=== PATIENT | male | born 1975 | race Caucasian/White ===

== ENCOUNTER 2018-02-25 08:28 | Emergency (ER) | payer BC ==
--- NOTE | 2018-02-25 08:36 | ER Report ---
History and Physical Time Seen By MD: 08:36 HPI/ROS CHIEF COMPLAINT: Blood in stool HISTORY OF PRESENT ILLNESS: Patient is a 42-year-old male who presents to emergency department with complaint of blood in his stools. 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 He states he's considered cancer free. Surgery occurred in [place]. Patient is currently considering moving back to [place] his parents live near [facility]. Patient states that he's been doing some moving lately and states approximately one week ago he had 2 episodes of hematuria which resolved spontaneously. He states that today he had grossly bloody stools with watery diarrhea. Denies any mucus. He also states that over the past few weeks to months his stool caliber has decreased in size. He denies any fevers or chills. Denies nausea vomiting. Denies any recent antibiotic use. REVIEW OF SYSTEMS: Constitutional: No fever, no chills. Eyes: No discharge. ENT: No sore throat. Cardiovascular: No chest pain, no palpitations. Respiratory: No cough, no shortness of breath. Gastrointestinal: Epigastric abdominal pain, bloody stools Genitourinary: Ports hematuria twice last week none currently Musculoskeletal: No back pain. Skin: No rashes. Neurological: No headache. Allergies: Coded Allergies: Penicillins (Verified Allergy, Intermediate, HIVES, 02/25/18) amoxicillin (Verified Allergy, Intermediate, HIVES, 02/25/18) ciprofloxacin (Verified Allergy, Intermediate, RASH, 02/25/18) Home Meds Reported Medications Cyanocobalamin (Vitamin B-12) (VITAMIN B-12) 1,000 Mcg Tablet, 1000 MCG PO DAILY 02/25/18 Folic Acid (FOLIC ACID) 1 Mg Tablet, 1 MG PO QDAY, TAB 02/25/18 Duloxetine HCl (Duloxetine HCl) 60 Mg Capsule., 1 CAP PO DAILY 02/25/18 Duloxetine HCl (Duloxetine HCl) 30 Mg Capsule., 1 CAP PO DAILY 02/25/18 Pregabalin (LYRICA) 150 Mg Capsule, 150 MG PO BID, CAPSULE 02/25/18 Past Medical/Surgical History Past medical history for 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 Patient had a 6 month follow-up and is considered cancer free at this point. Patient also had a bowel obstruction this past May that required surgical intervention. Constitutional Vital Sign - Last 24 Hours 02/25/18 02/25/18 02/25/18 02/25/18 08:34 08:35 08:45 08:46 Temp 97.4 Pulse 83 82 Resp 16 B/P (MAP) 130/97 130/97 (108) 126/85 (99) Pulse Ox 94 94 O2 Delivery Room Air 02/25/18 02/25/18 02/25/18 09:00 10:00 10:19 B/P (MAP) 125/83 (97) 109/80 (90) 102/80 (87) Physical Exam General/Constitutional: Patient is awake, alert, nontoxic and in no acute respiratory distress. Head: Normocephalic and atraumatic. Eyes: Conjunctival clear, Pupils are equal and reactive to light. Extraocular muscles are intact and symmetrical. Sclera are clear and anicteric. Ears:External canals are clear. Tympanic membranes are clear with normal landmarks and light reflex. Nares: No rhinorrhea or bleeding. Turbinates are pink and moist. Oropharyngeal: Mucous membranes are moist. There is no pharyngeal erythema or exudate. There are no palatal petechiae. Uvula is midline and symmetrical. Neck: Supple, no adenopathy. Cardiovascular: Heart is regular rate and rhythm without audible murmurs, rubs or gallops. Pulmonary: Lungs are clear to auscultation bilaterally. There are no wheezes, rales, or rhonchi. Chest rise is symmetrical Abdomen: Soft nondistended, mild tenderness to the mid abdomen with palpation. No rebound tenderness elicited. Rectal exam: Normal tone no visible external hemorrhoids. Small amount of stool is obtained that appeared red in color and was sent for Hemoccult. Extremities: No gross deformities, No peripheral cyanosis. Able to move all 4 extremities. Neuro: Alert and oriented X3, Cranial nerves 2 thru 12 are intact and symmetrical. Patient has normal gait. Skin: No rashes, skin is warm dry and well perfused. Medical Decision Making Data Points Result Diagram: 02/25/1890102/25/18901 Laboratory Hematology Test 02/25/18 08:57 02/25/18 09:02 02/25/18 09:36 Stool Occult Blood (IFOB) Positive (NEGATIVE) Red Blood Count 5.36 M/uL (4.00-5.60) Mean Corpuscular Volume 90.2 fL (80.0-96.0) Mean Corpuscular Hemoglobin 31.4 pg (26.0-33.0) Mean Corpuscular Hemoglobin Concent 34.8 g/dL (32.0-36.0) Red Cell Distribution Width 14.0 % (11.5-14.5) Mean Platelet Volume 8.3 fL (7.2-11.1) Neutrophils (%) (Auto) 58.6 % (39.4-72.5) Lymphocytes (%) (Auto) 27.3 % (17.6-49.6) Monocytes (%) (Auto) 6.0 % (4.1-12.4) Eosinophils (%) (Auto) 6.2 % (0.4-6.7) Basophils (%) (Auto) 1.9 % (0.3-1.4) Nucleated RBC Relative Count (auto) 0.1 /100WBC Neutrophils # (Auto) 4.0 K/uL (2.0-7.4) Lymphocytes # (Auto) 1.9 K/uL (1.3-3.6) Monocytes # (Auto) 0.4 K/uL (0.3-1.0) Eosinophils # (Auto) 0.4 K/uL (0.0-0.5) Basophils # (Auto) 0.1 K/uL (0.0-0.1) Nucleated RBC Absolute Count (auto) 0.01 K/uL Prothrombin Time 13.4 seconds (12.0-14.4) Prothromb Time International Ratio 1.02 Activated Partial Thromboplast Time 32 seconds (23-35) Sodium Level 142 mmol/L (137-145) Potassium Level 3.6 mmol/L (3.5-5.0) Chloride Level 103 mmol/L (98-107) Carbon Dioxide Level 28 mmol/L (22-30) Blood Urea Nitrogen 13 mg/dl (9-21) Creatinine 0.90 mg/dl (0.66-1.25) Glomerular Filtration Rate Calc > 60.0 Random Glucose 106 mg/dl (75-110) Calcium Level 9.6 mg/dl (8.4-10.2) Total Bilirubin 0.5 mg/dl (0.2-1.3) Aspartate Amino Transf (AST/SGOT) 20 U/L (0-35) Alanine Aminotransferase (ALT/SGPT) 29 U/L (0-56) Alkaline Phosphatase 77 U/L (0-126) Total Protein 7.5 g/dl (6.3-8.2) Albumin 4.3 g/dl (3.5-5.0) Lipase 76 U/L (23-300) Helicobacter pylori IgG Antibody Negative (NEGATIVE) Urine Color Straw Urine Clarity Clear Urine pH 7.0 pH (4.8-9.5) Urine Specific Van 1.019 Urine Protein Negative mg/dL (NEGATIVE) Urine Glucose (UA) Negative mg/dL (NEGATIVE) Urine Ketones Negative mg/dL (NEGATIVE) Urine Blood Negative (NEGATIVE) Urine Nitrite Negative (NEGATIVE) Urine Bilirubin Negative (NEGATIVE) Urine Urobilinogen Negative mg/dL (0.2-1.9) Urine Leukocyte Esterase Negative (NEGATIVE) Urine RBC None /HPF (0-2/HPF) Urine WBC <1 /HPF (0-5/HPF) Urine Squamous Epithelial Cells None /LPF (</=FEW) Urine Bacteria Negative /HPF (NONE-FEW) Urine Mucus None /HPF (NONE-FEW) Chemistry Test 02/25/18 08:57 02/25/18 09:02 02/25/18 09:36 Stool Occult Blood (IFOB) Positive (NEGATIVE) White Blood Count 6.9 k/uL (4.5-11.0) Red Blood Count 5.36 M/uL (4.00-5.60) Hemoglobin 16.8 g/dL (14.0-18.0) Hematocrit 48.3 % (42.0-52.0) Mean Corpuscular Volume 90.2 fL (80.0-96.0) Mean Corpuscular Hemoglobin 31.4 pg (26.0-33.0) Mean Corpuscular Hemoglobin Concent 34.8 g/dL (32.0-36.0) Red Cell Distribution Width 14.0 % (11.5-14.5) Platelet Count 253 K/uL (150-450) Mean Platelet Volume 8.3 fL (7.2-11.1) Neutrophils (%) (Auto) 58.6 % (39.4-72.5) Lymphocytes (%) (Auto) 27.3 % (17.6-49.6) Monocytes (%) (Auto) 6.0 % (4.1-12.4) Eosinophils (%) (Auto) 6.2 % (0.4-6.7) Basophils (%) (Auto) 1.9 % (0.3-1.4) Nucleated RBC Relative Count (auto) 0.1 /100WBC Neutrophils # (Auto) 4.0 K/uL (2.0-7.4) Lymphocytes # (Auto) 1.9 K/uL (1.3-3.6) Monocytes # (Auto) 0.4 K/uL (0.3-1.0) Eosinophils # (Auto) 0.4 K/uL (0.0-0.5) Basophils # (Auto) 0.1 K/uL (0.0-0.1) Nucleated RBC Absolute Count (auto) 0.01 K/uL Prothrombin Time 13.4 seconds (12.0-14.4) Prothromb Time International Ratio 1.02 Activated Partial Thromboplast Time 32 seconds (23-35) Glomerular Filtration Rate Calc > 60.0 Calcium Level 9.6 mg/dl (8.4-10.2) Total Bilirubin 0.5 mg/dl (0.2-1.3) Aspartate Amino Transf (AST/SGOT) 20 U/L (0-35) Alanine Aminotransferase (ALT/SGPT) 29 U/L (0-56) Alkaline Phosphatase 77 U/L (0-126) Total Protein 7.5 g/dl (6.3-8.2) Albumin 4.3 g/dl (3.5-5.0) Lipase 76 U/L (23-300) Helicobacter pylori IgG Antibody Negative (NEGATIVE) Urine Color Straw Urine Clarity Clear Urine pH 7.0 pH (4.8-9.5) Urine Specific Van 1.019 Urine Protein Negative mg/dL (NEGATIVE) Urine Glucose (UA) Negative mg/dL (NEGATIVE) Urine Ketones Negative mg/dL (NEGATIVE) Urine Blood Negative (NEGATIVE) Urine Nitrite Negative (NEGATIVE) Urine Bilirubin Negative (NEGATIVE) Urine Urobilinogen Negative mg/dL (0.2-1.9) Urine Leukocyte Esterase Negative (NEGATIVE) Urine RBC None /HPF (0-2/HPF) Urine WBC <1 /HPF (0-5/HPF) Urine Squamous Epithelial Cells None /LPF (</=FEW) Urine Bacteria Negative /HPF (NONE-FEW) Urine Mucus None /HPF (NONE-FEW) Coagulation Test 02/25/18 09:02 Prothrombin Time 13.4 seconds Prothromb Time International Ratio 1.02 Activated Partial Thromboplast Time 32 seconds Urinalysis Test 02/25/18 09:36 Urine Color Straw Urine Clarity Clear Urine pH 7.0 pH (4.8-9.5) Urine Specific Van 1.019 Urine Protein Negative mg/dL (NEGATIVE) Urine Glucose (UA) Negative mg/dL (NEGATIVE) Urine Ketones Negative mg/dL (NEGATIVE) Urine Blood Negative (NEGATIVE) Urine Nitrite Negative (NEGATIVE) Urine Bilirubin Negative (NEGATIVE) Urine Urobilinogen Negative mg/dL (0.2-1.9) Urine Leukocyte Esterase Negative (NEGATIVE) Urine RBC None /HPF (0-2/HPF) Urine WBC <1 /HPF (0-5/HPF) Urine Squamous Epithelial Cells None /LPF (</=FEW) Urine Bacteria Negative /HPF (NONE-FEW) Urine Mucus None /HPF (NONE-FEW) EKG/Imaging Imaging FACILITY: [facility] PATIENT NAME: Hiram Gonzales : 1975 MR: [id number] V: [id number] EXAM DATE: [id number] ORDERING PHYSICIAN: DARRON BILL TECHNOLOGIST: Location: [facility] Patient: Hiram Gonzales : 1975 Visit/Account:[id number] Date of Sevice: 02/25/2018 ABDOMEN/PELVIS WITH CONTRAST Provided history: ab pain, bloody stools Additional pertinent history: none TECHNIQUE: Spiral scan was obtained from the lower chest through the symphysis with intravenous contrast Contrast dose: 75 mL Isovue 370 intravenously. Source images were reformatted in the coronal and sagittal planes. Additional series performed today: none One of the following dose optimization techniques was utilized in the performance of this exam: Automated exposure control; adjustment of the mA and/or kV according to the patient's size; or use of an iterative reconstruction technique. Specific details can be referenced in the facility's radiology CT exam operational policy. COMPARISON STUDIES: No relevant priors FINDINGS: Lower chest: Negative Liver/biliary: Negative Pancreas: Negative Spleen: Negative Adrenal glands: Negative Kidneys / ureters / bladder / genitourinary / retroperitoneum: Negative Bowel / peritoneum / mesenteries: There is either adherent stool or eccentric wall thickening of the rectum centered approximately asymmetries above the verge. No dilation or acute inflammatory disease. There are scattered diverticula of the sigmoid colon but no signs of diverticulitis. No free fluid and no free air. Appendix is not directly visualized. There are anastomotic sutures in the distal small bowel mild localized dilation typically from denervation. Perhaps the appendix has been removed. Vessels: negative Lymph nodes: negative Body wall: Negative Bones: negative IMPRESSION: 1. No acute inflammatory disease in the abdomen or pelvis. Appendix is not directly visualized. There is no definable tear process relative of the cecum. 2. Previous small bowel surgery with localized mild dilation very likely benign postop denervation and not significant. 3. Adherent stool versus eccentric wall thickening of the right lateral and posterior wall of the rectum. Correlate with clinical exam findings to exclude potential mural lesion. Report Dictated By: Wilton Eli MD at 02/25/2018 9:36 AM Report E-Signed By: Wilton Eli MD at 02/25/2018 9:44 AM WSN:[id number] ED Course/Re-evaluation Clinical Indication for ER IV: Hydration, IV Access ED Course 02/25/2018 9:03:55 am patient with bloody diarrhea and belly pain. Plan at this time will be CBC CMP and Hemoccult stool as well as CT scan of the abdomen and pelvis with IV contrast. Patient was offered pain medication but he refused at this time. Decision to Disposition Date: Feb 25, 2018 Decision to Disposition Time: 10:10 Depart Departure Latest Vital Signs Vital Signs Date Time Temp Pulse Resp B/P (MAP) Pulse Ox O2 Delivery O2 Flow Rate FiO2 02/25/18 10:19 102/80 (87) 02/25/18 08:45 82 94 02/25/18 08:34 97.4 16 Room Air Impression: Primary Impression: Hematochezia Condition: Improved Disposition: HOME OR SELF-CARE Referrals: HARSH LERNER MD Call Dr. Mccoy's office in the next few days to schedule a follow-up appointment for rectal bleeding and to schedule a possible colonoscopy. Patient Instructions: Rectal Bleeding (DC) DARRON BILL MD Feb 25, 2018 08:36
[2018-02-25] MEDS ORDERED: FOLI-68 PO (08:45)
[2018-02-25] MEDS ORDERED: PREG150C33 PO (08:45)
[2018-02-25] MEDS ORDERED: DULO30CA6 PO (08:45)
[2018-02-25] MEDS ORDERED: CYA1000 PO (08:45)
[2018-02-25] MEDS ORDERED: DULO60CA7 PO (08:45)
[2018-02-25] MEDS ORDERED: NS(*) 0.9% 1000 ML BAG 1,000 ML IV ONE (08:55)
[2018-02-25] MEDS ORDERED: IOPAMIDOL 76% 75 ML INFUS BTL 75 ML ONE (09:07)
[2018-02-25 09:16] LABS: PLATELET COUNT, AUTOMATED 253 K/uL (150-450)
[2018-02-25 09:44] LABS: INR 1.02
--- NOTE | 2018-02-25 09:49 | RADIOLOGY IMAGING REPORT ---
FACILITY: [facility] [place] PATIENT NAME: Hiram Gonzales : 1975 MR: [id number] V: [id number] EXAM DATE: [id number] ORDERING PHYSICIAN: DARRON BILL TECHNOLOGIST: Location: [facility] [place] Patient: Hiram Gonzales : 1975 Visit/Account:[id number] Date of Sevice: 02/25/2018 ABDOMEN/PELVIS WITH CONTRAST Provided history: ab pain, bloody stools Additional pertinent history: none TECHNIQUE: Spiral scan was obtained from the lower chest through the symphysis with intravenous cont rast Contrast dose: 75 mL Isovue 370 intravenously. Source images were reformatted in the coronal and sagittal planes. Additional series performed today: none One of the following dose optimization techniques was utilized in the performance of this exam: Autom ated exposure control; adjustment of the mA and/or kV according to the patient's size; or use of an i terative reconstruction technique. Specific details can be referenced in the facility's radiology CT exam operational policy. COMPARISON STUDIES: No relevant priors FINDINGS: Lower chest: Negative Liver/biliary: Negative Pancreas: Negative Spleen: Negative Adrenal glands: Negative Kidneys / ureters / bladder / genitourinary / retroperitoneum: Negative Bowel / peritoneum / mesenteries: There is either adherent stool or eccentric wall thickening of the rectum centered approximately asymmetries above the verge. No dilation or acute inflammatory disease. There are scattered diverticula of the sigmoid colon but n o signs of diverticulitis. No free fluid and no free air. Appendix is not directly visualized. There are anastomotic sutures in the distal small bowel mild localized dilation typically from denervation. Perhaps the appendix has been removed. Vessels: negative Lymph nodes: negative Body wall: Negative Bones: negative IMPRESSION: 1. No acute inflammatory disease in the abdomen or pelvis. Appendix is not directly visualized. There is no definable tear process relative of the cecum. 2. Previous small bowel surgery with localized mild dilation very likely benign postop denervation an d not significant. 3. Adherent stool versus eccentric wall thickening of the right lateral and posterior wall of the rec vasu. Correlate with clinical exam findings to exclude potential mural lesion. Report Dictated By: Wilton Eli MD at 02/25/2018 9:36 AM Report E-Signed By: Wilton Eli MD at 02/25/2018 9:44 AM WSN:[id number]
[2018-02-25 10:19] VITALS: BP 102/80
== END 2018-02-25 10:27 | disposition home or self-care (01) ==
LOC: ER 08:40
DX: K92.1 Melena (principal)
CPT/HCPCS: 74177; 81001; 82274; 83690; 85025; 85610; 85730; 86677; 96360; 99284; J7030; Q9967; 82040; 82247; 82310; 82374; 82435; 82565; 82947; 84075; 84132; 84155; 84295; 84450; 84460; 84520

== ENCOUNTER 2018-03-30 16:26 | Emergency (ER) | payer BC ==
[~2018-03-30 16:26] MED LIST: CYA1000 PO; DULO30CA6 PO; DULO60CA7 PO; FOLI-68 PO; PREG150C33 PO
--- NOTE | 2018-03-30 17:18 | ER Report ---
History and Physical Time Seen By MD: 16:53 Hx. of Stated Complaint: rectal bleeding HPI/ROS CHIEF COMPLAINT: BRIGHT RED BLOOD IN STOOL HISTORY OF PRESENT ILLNESS: Pt 2 weeks ago had episode of bloody stools. PT came to ed and was evaluated. Pt states that it stopped but then restarted last thursday. Pt states he has not much stool last week but has had bright red blood per rectum. pt has hx of neuroendocrine tumor in his small bowel a year ago that was removed. Pt states he is cancer free. Pt did go back to see his gi specialist in [place] on and was told he needs to have a colonoscopy due to the bleeding. PT is in processes of moving from [place] to [place] and is unable to schedule his colonoscopy in [place]. Pt was given the name of Dr. Mccoy here in [place] but is not sure if his [place] insurance will pay for procedure her in [place]. came to ed to be rechecked due to a week of bright red blood. PT states he has had little stool.stool is brown but has the bright red blood around the stool. Pt also noticed a tender lymph node near his left ear but has no ear or uri symptoms. no n/v/d REVIEW OF SYSTEMS: Constitutional: No fever, no chills. Eyes: No discharge. ENT: No sore throat. Cardiovascular: No chest pain, no palpitations. Respiratory: No cough, no shortness of breath. Gastrointestinal: No abdominal pain, no vomiting, + bright red blood from rectum Genitourinary: No hematuria. Musculoskeletal: No back pain. Skin: No rashes. Neurological: No headache. Allergies: Coded Allergies: Penicillins (Verified Allergy, Intermediate, HIVES, 03/30/18) amoxicillin (Verified Allergy, Intermediate, HIVES, 03/30/18) ciprofloxacin (Verified Allergy, Intermediate, RASH, 03/30/18) Home Meds Reported Medications Cyanocobalamin (Vitamin B-12) (VITAMIN B-12) 1,000 Mcg Tablet, 1000 MCG PO DAILY 02/25/18 Folic Acid (FOLIC ACID) 1 Mg Tablet, 1 MG PO QDAY, TAB 02/25/18 Duloxetine HCl (Duloxetine HCl) 60 Mg Capsule., 1 CAP PO DAILY 02/25/18 Duloxetine HCl (Duloxetine HCl) 30 Mg Capsule., 1 CAP PO DAILY 02/25/18 Pregabalin (LYRICA) 150 Mg Capsule, 150 MG PO BID, CAPSULE 02/25/18 Past Medical/Surgical History pmhx: neuroendocrine tumor 2017, interssuseption, sbo Pshx: bowel resection Reviewed Nurses Notes: Yes Old Medical Records Reviewed: Yes Hx Smoking: Yes Hx Substance Use Disorder: Yes (occ marijuana) Hx Alcohol Use: Yes (rare) Constitutional Vital Sign - Last 24 Hours 03/30/18 16:36 Temp 98.1 Pulse 101 Resp 12 B/P (MAP) 123/91 Pulse Ox 95 O2 Delivery Room Air Physical Exam General Appearance: The patient is alert, has no immediate need for airway protection and no signs of toxicity. Eyes: Pupils equal and round no pallor or injection, EOMI ENT: no pharyngeal erythema or exudates, Mucous membranes are moist, TM are nl b/l, PT does have a palpable lymph node periauricular that is mobile but tender Respiratory: There are no retractions, lungs are clear to auscultation. Cardiovascular: Regular rate and rhythm. pulses are equal and symmetrical Gastrointestinal: Abdomen is soft and non tender, no masses, bowel sounds normal, no guarding, no rigidity or rebound REctal: no fissure noted, no external hemorroid, + bright red blood on glove with rectal with small amount of brown stool Neurological: Cranial nerves II-XII grossly intact, no sensory or motor loss Skin: Warm and dry, no rashes. Musculoskeletal: Neck is supple non tender, no vertebral tenderness Extremities are nontender, nonswollen and have full range of motion. DIFFERENTIAL DIAGNOSIS: After history and physical exam differential diagnosis was considered for internal hemorrhoids, diverticular bleed, ca, fissure, anemia Medical Decision Making Data Points Result Diagram: 03/30/18 1727 03/30/18 1727 Laboratory Hematology Test 03/30/18 17:03 03/30/18 17:27 Stool Occult Blood (IFOB) Positive (NEGATIVE) Red Blood Count 5.19 M/uL (4.00-5.60) Mean Corpuscular Volume 89.4 fL (80.0-96.0) Mean Corpuscular Hemoglobin 31.1 pg (26.0-33.0) Mean Corpuscular Hemoglobin Concent 34.8 g/dL (32.0-36.0) Red Cell Distribution Width 14.1 % (11.5-14.5) Mean Platelet Volume 8.8 fL (7.2-11.1) Neutrophils (%) (Auto) 51.4 % (39.4-72.5) Lymphocytes (%) (Auto) 36.6 % (17.6-49.6) Monocytes (%) (Auto) 6.5 % (4.1-12.4) Eosinophils (%) (Auto) 5.3 % (0.4-6.7) Basophils (%) (Auto) 0.2 % (0.3-1.4) Nucleated RBC Relative Count (auto) 0.1 /100WBC Neutrophils # (Auto) 3.4 K/uL (2.0-7.4) Lymphocytes # (Auto) 2.4 K/uL (1.3-3.6) Monocytes # (Auto) 0.4 K/uL (0.3-1.0) Eosinophils # (Auto) 0.4 K/uL (0.0-0.5) Basophils # (Auto) 0.0 K/uL (0.0-0.1) Nucleated RBC Absolute Count (auto) 0.00 K/uL Sodium Level 140 mmol/L (137-145) Potassium Level 3.6 mmol/L (3.5-5.0) Chloride Level 105 mmol/L (98-107) Carbon Dioxide Level 26 mmol/L (22-30) Blood Urea Nitrogen 12 mg/dl (9-21) Creatinine 1.10 mg/dl (0.66-1.25) Glomerular Filtration Rate Calc > 60.0 Random Glucose 103 mg/dl (75-110) Calcium Level 9.2 mg/dl (8.4-10.2) Total Bilirubin 0.3 mg/dl (0.2-1.3) Aspartate Amino Transf (AST/SGOT) 18 U/L (0-35) Alanine Aminotransferase (ALT/SGPT) 25 U/L (0-56) Alkaline Phosphatase 74 U/L (0-126) Total Protein 7.1 g/dl (6.3-8.2) Albumin 4.1 g/dl (3.5-5.0) Chemistry Test 03/30/18 17:03 03/30/18 17:27 Stool Occult Blood (IFOB) Positive (NEGATIVE) White Blood Count 6.6 k/uL (4.5-11.0) Red Blood Count 5.19 M/uL (4.00-5.60) Hemoglobin 16.1 g/dL (14.0-18.0) Hematocrit 46.4 % (42.0-52.0) Mean Corpuscular Volume 89.4 fL (80.0-96.0) Mean Corpuscular Hemoglobin 31.1 pg (26.0-33.0) Mean Corpuscular Hemoglobin Concent 34.8 g/dL (32.0-36.0) Red Cell Distribution Width 14.1 % (11.5-14.5) Platelet Count 260 K/uL (150-450) Mean Platelet Volume 8.8 fL (7.2-11.1) Neutrophils (%) (Auto) 51.4 % (39.4-72.5) Lymphocytes (%) (Auto) 36.6 % (17.6-49.6) Monocytes (%) (Auto) 6.5 % (4.1-12.4) Eosinophils (%) (Auto) 5.3 % (0.4-6.7) Basophils (%) (Auto) 0.2 % (0.3-1.4) Nucleated RBC Relative Count (auto) 0.1 /100WBC Neutrophils # (Auto) 3.4 K/uL (2.0-7.4) Lymphocytes # (Auto) 2.4 K/uL (1.3-3.6) Monocytes # (Auto) 0.4 K/uL (0.3-1.0) Eosinophils # (Auto) 0.4 K/uL (0.0-0.5) Basophils # (Auto) 0.0 K/uL (0.0-0.1) Nucleated RBC Absolute Count (auto) 0.00 K/uL Glomerular Filtration Rate Calc > 60.0 Calcium Level 9.2 mg/dl (8.4-10.2) Total Bilirubin 0.3 mg/dl (0.2-1.3) Aspartate Amino Transf (AST/SGOT) 18 U/L (0-35) Alanine Aminotransferase (ALT/SGPT) 25 U/L (0-56) Alkaline Phosphatase 74 U/L (0-126) Total Protein 7.1 g/dl (6.3-8.2) Albumin 4.1 g/dl (3.5-5.0) ED Course/Re-evaluation ED Course Check hb 03/30/2018 5:56:46 pm Pts hb is stable no significant change from his ED visit earlier this month. Spoke with pt and he is comfortable to go home. Pt understands he needs a colonoscopy. PT states he needs to contact his insurance to see if he can have it done here and then will schedule. Decision to Disposition Date: Mar 30, 2018 Decision to Disposition Time: 17:59 Depart Departure Latest Vital Signs Vital Signs Date Time Temp Pulse Resp B/P (MAP) Pulse Ox O2 Delivery O2 Flow Rate FiO2 03/30/18 16:36 98.1 101 12 123/91 95 Room Air Impression: Primary Impression: Bright red blood per rectum Condition: Condition Unchanged Disposition: HOME OR SELF-CARE Referrals: HARSH LERNER MD Call to schedule colonscopy Patient Instructions: GENERAL ER DISCHARGE INSTRUCTIONS Additional Instructions: Your blood counts, hemoglobin, had no significant change from your prior visit this February. It is important that you have a colonoscopy. Locally you can call Dr. Lerner. If you develop fevers or if you become light headed, dizzy, weak, or any other concerns then please return immediately. LINDA DAVIS DO Mar 30, 2018 17:18
[2018-03-30 17:36] LABS: PLATELET COUNT, AUTOMATED 260 K/uL (150-450)
[2018-03-30 18:00] VITALS: BP 117/85
== END 2018-03-30 18:08 | disposition home or self-care (01) ==
LOC: ER 17:06
DX: K92.1 Melena (principal)
CPT/HCPCS: 36415; 82040; 82247; 82274; 82310; 82374; 82435; 82565; 82947; 84075; 84132; 84155; 84295; 84450; 84460; 84520; 85025; 99282